=== PATIENT | male | born 1990 | race Caucasian/White ===

== ENCOUNTER 2021-08-03 01:05 | Emergency (ER) | payer SELFPAY ==
[~2021-08-03] VITALS: Ht 167.6 cm; Wt 81.5 kg
[2021-08-03 01:23] VITALS: BP 165/101
== END 2021-08-03 04:11 | disposition left against medical advice (07) ==
LOC: ER 01:37
DX: Z53.21 Procedure and treatment not carried out due to patient leaving prior to being seen by health care provider (principal)